=== PATIENT | female | born 1990 | race Caucasian/White ===

== ENCOUNTER 2016-09-19 14:57 | Outpatient (CLI) | payer OTHER ==
--- NOTE | 2016-09-19 16:18 | DIAGNOSTIC IMAGING REPORT ---
PROCEDURE: US OB 1ST TRIMESTER W/TRANSVAG INDICATION: Follow up possible blighted ovum. TECHNIQUE: Dee scale, color, and spectral Doppler transabdominal and endovaginal sonographic images of the first trimester gravid uterus were obtained. COMPARISON: None. FINDINGS: TRANSABDOMINAL SCANS: There is an intrauterine gestational sac with mild enlargement of the uterus. Kidneys are normal. TRANSVAGINAL SCANS: There is an early intrauterine sac which measures 4.0 x 2.8 x 3.7 cm (10.7 weeks). However, there is no evidence of pole or yolk sac. There is a small subchorionic hemorrhage. Normal cervix length (5.2 cm). Left ovary is normal (2.5 cm). Right ovary is mildly prominent (3.9 cm) with a 2.5 cm simple cyst. Trace free fluid. IMPRESSION: 1. There is an early intrauterine gestational sac (10.7 weeks), but no evidence of pole or yolk sac. Findings are compatible with blighted ovum. 2. Small subchorionic hemorrhage. 3. Findings were discussed with the patient. 4. Findings called to Dr. Roly Saucedo who requests the patient follow-up the following day (conveyed to the patient).
== END 2016-09-19 23:00 | disposition home or self-care (01) ==
LOC: US SRH 14:57
DX: N83.201 Unspecified ovarian cyst, right side (principal)

== ENCOUNTER 2016-09-20 11:07 | Outpatient (CLI) | payer OTHER | END 2016-09-20 23:00 | LOC: LAB SRH 11:07 | DX: O02.0 Blighted ovum and nonhydatidiform mole (principal) | CPT/HCPCS: 90001; 90074; 90155 ==